=== PATIENT | male | born 1985 | race African-American/Black ===

== ENCOUNTER 2017-03-19 19:50 | Emergency (ER) | payer SELFPAY ==
[2017-03-19 20:29] LABS: APPEARANCE,URINE CLEAR; BILIRUBIN,URINE NEGATIVE (NEGATIVE); COLOR,URINE YELLOW; GLUCOSE, URINE >=500 mg/dL (NEGATIVE); KETONES,URINE NEGATIVE (NEGATIVE); LEUKOCYTE ESTERASE,URINE NEGATIVE (NEGATIVE); NITRITE,URINE NEGATIVE (NEGATIVE); PROTEIN,URINE NEGATIVE (NEGATIVE); URINE SPECIFIC GRAVITY 1.031
[2017-03-19 20:30] VITALS: BP 155/88
--- NOTE | 2017-03-19 23:22 | ER Document Report ---
ED GI/ - General Chief Complaint: Flank Pain Stated Complaint: URINIARY ISSUES Time Seen by Provider: 03/19/17 22:49 Mode of Arrival: Ambulatory Information source: Patient - HPI Patient complains to provider of: Other - Blood in semen Onset: This morning Notes: 03/19/17 23:17 Patient arrives with complaints of blood in his semen this morning. He states that never seen that happened before. States that he urinated several times throughout the day today and did not notice any blood in his urine. He denies any nausea, vomiting, diarrhea. He denies any pain with urination. Does complain of some intermittent sharp pains in his left lower abdomen, but denies any significant pain there at this time. He denies any rashes. No fever. No nausea, vomiting, diarrhea. No chest pain or shortness of breath. He is not on blood thinning medications. He denies any injuries. He denies any penile discharge, testicular pain or swelling. He denies multiple sexual partners. He denies any known history of diabetes. He has no other complaints at this time. - Related Data Allergies/Adverse Reactions: No Known Allergies Allergy (Unverified 03/19/17 19:51) Past Medical History - Social History Smoking Status: Unknown if Ever Smoked Family History: Reviewed & Not Pertinent Review of Systems - Review of Systems -: Yes All other systems reviewed and negative Physical Exam - Vital signs Vitals: Temp Pulse BP Pulse Ox 97.4 F 83 155/88 H 96 03/19/17 20:29 03/19/17 20:29 03/19/17 20:29 03/19/17 20:29 - Notes Notes: GENERAL: alert, cooperative, nontoxic, no distress. HEAD: normocephalic, atraumatic EYES: conjunctiva pink without discharge, no external redness or swelling. EARS: no external swelling, no external redness NOSE: atraumatic, no external swelling MOUTH/THROAT: mucous membranes moist and pink, posterior pharynx without erythema, swelling, exudate. No trismus or drooling. NECK: soft, supple, full range of motion, no meningismus. CHEST: no distress, lungs clear and equal throughout. No wheezing, rales, rhonchi. CARDIAC: regular rate and rhythm, no murmur, normal capillary refill, normal pulses. No peripheral edema noted. ABDOMEN: Soft, nontender. No mass. No rebound tenderness or guarding. BACK: full range of motion, no CVA tenderness. EXTREMITIES: full range of motion of all extremities. No redness, no swelling. NEURO: alert and oriented x 3, no focal deficits, full range of motion of all extremities. PYSCH: appropriate mood, affect. Patient is cooperative. SKIN: pink, warm, dry, no rash. : Normal circumcised penis with no penile discharge. Normal testicular exam with no masses or tenderness. No swelling. Cremasterics reflexes present bilaterally. No masses. Scrotal skin is normal with no erythema or crepitus. Course - Re-evaluation Re-evalutation: 03/19/17 23:19 Patient is nontoxic appearing with stable vitals. Patient states that he noticed some blood in the semen this morning and has had no further blood throughout the day. He denies any blood in his urine. Had some intermittent left-sided abdominal pain, but denies any pain currently. He is no tenderness on exam. His exam is unremarkable. His urinalysis shows no blood or signs of infection but does show 500 of glucose. Fingerstick shows a glucose of 187. The patient denies any known history of diabetes. It is likely that the patient has undiagnosed type 2 diabetes. He has no other complaints at this time. I offered drawing blood work and ordering a CT of his abdomen in the emergency department tonight. The patient declined at this time. He states that he feels fine and would prefer to follow-up as an outpatient with primary care. I will place the patient on antibiotics for possible infection as the source of his blood in his semen. He will be referred to primary care. The patient is noted to have elevated blood pressure during today's emergency department visit. The patient was informed of this finding. The patient was instructed that this may be related to pre-hypertension and requires further evaluation with a primary care provider. The patient has no hypertensive symptoms at this time. The patient's emergency department workup and current diagnosis were explained to the patient and or family. Follow-up instructions were provided. Medications if prescribed were discussed. Instructions for when to return to the emergency department including specific worrisome symptoms were discussed with the patient and/or family. - Vital Signs Vital signs: Temp Pulse Resp BP Pulse Ox 97.4 F 83 155/88 H 96 03/19/17 20:29 03/19/17 20:29 03/19/17 20:29 03/19/17 20:29 - Laboratory Laboratory results interpreted by me: 03/19/17 19:55 Urine Glucose (UA) >=500 H Urine Urobilinogen 2.0 H Discharge - Discharge Clinical Impression: Hyperglycemia, Hematospermia Condition: Stable Disposition: HOME, SELF-CARE Instructions: Hyperglycemia ([facility]) Additional Instructions: Take medications as prescribed. Drink plenty of fluids. Limit your carbohydrate intake. Get established with a primary care doctor at the next available appointment. Follow-up sooner for increasing pain, fever, persistent vomiting, blood in your urine, chest pain, shortness of breath, or any further concerns. Your blood pressure was elevated during today's visit. Have this rechecked with your doctor. Prescriptions: Ciprofloxacin HCl [Cipro 500 mg Tablet] 500 mg PO BID #20 tablet Forms: Elevated Blood Pressure, Smoking Cessation Education Referrals: [facility] [Provider Group] - Follow up as needed BIMAL MCGARRY OT [OPTHALMIC FINANCIAL SERVICES INTERN] - Follow up as needed CRISTINA DURAN DO [ACTIVE STAFF] - Follow up as needed PARTH PEDROZA MD [ACTIVE STAFF] - Follow up as needed ELTON LAY MD [ACTIVE STAFF] - Follow up as needed ELAINE HIRSCH DO [ACTIVE STAFF] - Follow up as needed DEENA ALCOCER MD [CONSULTING STAFF] - Follow up as needed JEOVANY CHUN MD [CONSULTING STAFF] - Follow up as needed
== END 2017-03-20 00:12 | disposition home or self-care (01) ==
LOC: ER 19:50
DX: R36.1 Hematospermia (principal); R73.9 Hyperglycemia, unspecified; R10.32 Left lower quadrant pain
CPT/HCPCS: 81001; 82962; 99284

== ENCOUNTER 2018-01-18 22:03 | Emergency (ER) | payer MEDICAID ==
[2018-01-19] MEDS ORDERED: METOCLOPRAMIDE HCL INJ/PF 10 MG/2 ML SDV IV ONE (01:15)
[2018-01-19] MEDS ORDERED: DIPHENHYDRAMINE HCL 50 MG/ML VIAL IV ONE (01:16)
[2018-01-19] MEDS ORDERED: LORAZEPAM INJ 2 MG/1 ML VIAL IV ONE (01:18)
--- NOTE | 2018-01-19 01:19 | ER Document Report ---
ED General - General Chief Complaint: Headache Stated Complaint: EYE INJURY Time Seen by Provider: 01/19/18 00:35 Mode of Arrival: Ambulatory Information source: Patient Notes: 32-year-old male with no reported past medical history and remote history of corneal transplant at age 77 years old presents with complaint of left-sided headache. Patient states that he damaged his corneal transplant 5 years ago and since that time has had complete vision loss. He states that 2 weeks ago he hit the corner of his eye on a cabinet. He was seen by his kettle fry cook operator at the eye care center and advised to follow-up with ophthalmology which he has yet to do. Patient states since that time he has experienced 2 headaches one last week that he describes as a throbbing pain at the back of his head on the left and one last night that he describes similarly with increased pressure behind the left eye. TRAVEL OUTSIDE OF THE [place] IN LAST 30 DAYS: No - HPI Onset: Other Onset/Duration: Gradual, Persistent Quality of pain: Achy, Throbbing Severity: Mild Associated symptoms: Headache. denies: Chest pain, Chills, Productive cough, Fever, Nausea, Vomiting, Shortness of breath, Weakness Exacerbated by: Other - Light Relieved by: Other - Ibuprofen Similar symptoms previously: Yes Recently seen / treated by doctor: Yes - Related Data Allergies/Adverse Reactions: No Known Allergies Allergy (Unverified 03/19/17 19:51) Past Medical History - General Information source: Patient, [facility] Records - Social History Smoking Status: Never Smoker Frequency of alcohol use: None Drug Abuse: Marijuana Lives with: Family Family History: Reviewed & Not Pertinent Patient has suicidal ideation: No Patient has homicidal ideation: No EENT Medical History: Reports: Eyes - Left eye corneal transplant, left eye blindness. Review of Systems - Review of Systems Notes: REVIEW OF SYSTEMS: CONSTITUTIONAL : Denies fever, chills, or sweats. Denies recent illness. Denies weight loss, recent hospitalizations. EENT: Denies visual changes. Denies sore throat, oral lesions, difficulty swallowing. CARDIOVASCULAR: Denies chest pain. Denies palpitations. Denies lower extremity edema. RESPIRATORY: Denies cough. Denies shortness of breath, wheezing. GASTROINTESTINAL: Denies abdominal pain or distention. Denies nausea, vomiting , or diarrhea. Denies blood in vomitus, stools, or per rectum. Denies black, tarry stools. Denies constipation. GENITOURINARY: Denies difficulty urinating, painful urination, frequency, blood in urine, testicular pain or penile discharge. MUSCULOSKELETAL: Denies back or neck pain or stiffness. Denies joint pain or swelling. SKIN: Denies rash, lesions or sores. HEMATOLOGIC : Denies easy bruising or bleeding. LYMPHATIC: Denies swollen glands. NEUROLOGICAL: Denies confusion or altered mental status. Denies loss of consciousness. Denies dizziness or lightheadedness. Denies weakness or paralysis. Denies problems difficulty with ambulation, slurred speech. Denies sensory loss, numbness, or tingling. Denies seizures. PSYCHIATRIC: Denies anxiety or stress. Denies depression, suicidal ideation, or Physical Exam - Vital signs Vitals: Temp Pulse Resp BP Pulse Ox 98.9 F 80 18 158/105 H 96 01/18/18 22:20 01/18/18 22:20 01/18/18 22:20 01/18/18 22:20 01/18/18 22:20 Interpretation: Hypertensive. No: Febrile - Notes Notes: PHYSICAL EXAMINATION: GENERAL: Well-appearing, well-nourished and in no acute distress. HEAD: Atraumatic, normocephalic. EYES: Right eye-PERRLA. Left eye with erythematous conjunctive , exophthalmos, cloudy cornea, complete visual loss. ENT: Nares patent, oropharynx clear without exudates. Moist mucous membranes. NECK: Normal range of motion, supple without lymphadenopathy LUNGS: Breath sounds clear to auscultation bilaterally and equal. No wheezes rales or rhonchi. HEART: Regular rate and rhythm without murmurs ABDOMEN: Soft, nontender, nondistended abdomen. No guarding, no rebound. No masses appreciated. Musculoskeletal: Normal range of motion, no pitting or edema. No cyanosis. NEUROLOGICAL: Cranial nerves grossly intact. Normal speech, normal gait. Normal sensory, motor exams PSYCH: Normal mood, normal affect. SKIN: Warm, Dry, normal turgor, no rashes or lesions noted. Course - Re-evaluation Re-evalutation: Head CT 01/19/18 01:12 IMPRESSION: Unilateral proptosis of the left globe and what appears to be lenticular displacement and rotation. There is also suggestion of medial displacement of the left optic nerve and slight prominence of the retrobulbar fat. Etiology is indeterminate based on this exam, however given the findings neoplastic etiologies are not excluded. Orbital pseudotumor, as well as inflammatory/ infectious processes could be considered. Recommend follow-up with dedicated MRI.. TECHNICAL DOCUMENTATION: Quality ID # 436: Final reports with documentation of one or more dose reduction techniques (e.g., Automated exposure control, adjustment of the mA and/or kV according to patient size, use of iterative reconstruction technique) 2010 [employer]- All Rights Reserved 01/19/18 02:10 [facility] contacted for ophthalmology consult. 01/19/18 02:[address] Rivera Thorne disease and insect control boss grey iron molder at [facility] who reviewed the CAT scan and its report. He states that the patient requires a unique specialty called orbital plastics which he states is at [facility]. 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 He does not feel that this is an emergent issue since the patient has had this problem chronically and has been blind in his left eye for approximately 5 years. Does not think patient needs emergent MRI. Decides what to do with this information when the patient is refusing to follow-up as recommended for the last 5 years. Patient has been told by multiple specialists that he needs to be seen by ophthalmology and he has yet to follow-up. I spoke to the patient at length and offered transfer to [facility] which he refuses. I also offered to attempt to set up follow-up with orbital plastics at [facility] as an outpatient and he also refuses that, states that going to [facility] expensive and too far. He does report resolution of his headache after receiving Reglan, Benadryl, Ativan, Decadron. I will give him a referral to our local disease and insect control boss but did set him up for the likelihood that they would recommend the same thing. Patient was evaluated and treated as appropriate for the patient's presenting symptoms and complaint, with consideration of any critical or life threatening conditions that may be associated with their obtained history and exam as noted above. All results were discussed with patient and a copy of his CAT scan report today. Patient provided the opportunity to ask questions, and express concerns. Patient was educated on treatments based on their presumed diagnosis as noted above. At this time we will discharge the patient with return precautions and follow-up recommendations. Verbal discharge instructions given a the bedside. Medication warnings reviewed. Patient is in agreement with this plan and has verbalized understanding of return precautions. After careful consideration I feel that that patient can be safely discharged from the emergency department, they were advised to followup with a primary care physician in 2-3 days. Dictation on this chart was performed using voice recognition software and may result in unintended grammatical, spelling, syntax or errors. 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 Please use Tylenol (acetaminophen) or Motrin (ibuprofen), Reglan or Benadryl as needed for symptoms, but only as written on the box. As we have discussed, please follow up with your primary care doctor as soon as possible regarding today's ED visit and your headache symptoms. Call your doctor or return to the ED if you have a worsening headache, sudden and severe headache, confusion, slurred speech, facial droop, weakness or numbness in any arm or leg, extreme fatigue, or other symptoms that concern you. Your CAT scan today is concerning for orbital sumo tumor or infection after speaking with ophthalmology they feel that you would best be served by seeing a orbital plastic surgeon. These specialists are usually only at large academic centers like [facility]. I did offer her to call [facility] and arrange follow- up for transfer but you are refusing at this time. Please take your CAT scan report with the due to the disease and insect control boss I have referred you to in [place]. Follow up with your [id number] hours for further care or return to the ED IMMEDIATELY if symptoms worsen or you have any concerns. If you cannot afford to follow up with your primary care physician a list of low cost clinics have been provided at the end of your discharge papers as well. Most prescribed medications have multiple side effects. The safest thing to do is when filling your prescription speak to your pharmacist regarding possible interactions with your normal home medications and over the counter medications such as Ibuprofen, Tylenol, Benadryl. If you experience any symptoms that cause you discomfort or concern you should discontinue the medication immediately and return to the emergency room or call your primary care physician. Prescriptions: Metoclopramide HCl [Reglan 10 mg Tablet] 1 tab PO Q8H PRN #10 tablet PRN Reason: For Headache Forms: Elevated Blood Pressure Referrals: ANTONINA BURGESS MD [COMMUNITY BASED STAFF] - Follow up as needed PARTH PEDROZA MD [ACTIVE STAFF] - Follow up tomorrow
--- NOTE | 2018-01-19 01:48 | RADIOLOGY REPORT (SQ) ---
EXAM DESCRIPTION: CT HEAD WITHOUT IV CONTRAST COMPLETED DATE/TME: 01/19/2018 01:12 CLINICAL HISTORY: 32 years, Male, FORD, exophthalmos, please include below orbits. COMPARISON: None. TECHNIQUE: 172 Images stored on PACS. All CT scanners at this facility use dose modulation, iterative reconstruction, and/or weight based dosing when appropriate to reduce radiation dose to as low as reasonably achievable (ALARA). [facility]: Dose Right [facility]: CareDose [facility]: Dose Right [facility]: Teradose 4D [facility]: [employer] LIMITATIONS: None. FINDINGS: There is unilateral proptosis of the left lobe and what appears to be lenticular displacement and rotation. Etiology is indeterminate based on this exam. However, there is also medial displacement of the left optic nerve. Slight prominence of the retrobulbar fat on the left. Osseous structures appear unremarkable. Polyps of the maxillary sinuses are present bilaterally. No intra or extra-axial hemorrhage. CT is limited for evaluation of acute infarct. No CT evidence for large or territorial acute infarct. No CT evidence for intra-axial mass or midline shift. IMPRESSION: Unilateral proptosis of the left globe and what appears to be lenticular displacement and rotation. There is also suggestion of medial displacement of the left optic nerve and slight prominence of the retrobulbar fat. Etiology is indeterminate based on this exam, however given the findings neoplastic etiologies are not excluded. Orbital pseudotumor, as well as inflammatory/ infectious processes could be considered. Recommend follow-up with dedicated MRI.. TECHNICAL DOCUMENTATION: Quality ID # 436: Final reports with documentation of one or more dose reduction techniques (e.g., Automated exposure control, adjustment of the mA and/or kV according to patient size, use of iterative reconstruction technique) 2010 [employer]- All Rights Reserved
[2018-01-19] MEDS ORDERED: DEXAMETHASONE 4 MG TABLET PO ONE (02:56)
[2018-01-19 04:05] VITALS: BP 157/96
== END 2018-01-19 04:05 | disposition home or self-care (01) ==
LOC: ER 22:03
DX: H05.112 Granuloma of left orbit (principal); R51 Headache; R03.0 Elevated blood-pressure reading, without diagnosis of hypertension; H05.20 Unspecified exophthalmos; F12.10 Cannabis abuse, uncomplicated; Z94.7 Corneal transplant status
CPT/HCPCS: 99284; 96374; 96375; 70450; J3490; J1200; J2765; J2060

== ENCOUNTER 2018-06-24 15:48 | Emergency (ER) | payer MEDICAID ==
[2018-06-24] MEDS ORDERED: ONDANSETRON 4 MG TAB.RAPDIS PO ONE (18:09)
--- NOTE | 2018-06-24 18:14 | ER Document Report ---
ED Medical Screen (RME) - General Chief Complaint: Abdominal Pain Stated Complaint: STOMACH PAIN Time Seen by Provider: 06/24/18 17:59 Primary Care Provider: LEENA YOUNG MD [Primary Care Provider] - Follow up as needed TRAVEL OUTSIDE OF THE [place] IN LAST 30 DAYS: No - HPI Notes: 06/24/18 18:12 Patient is a 33-year-old male with a history of hypertension who presents emergency department complaining of semi-productive cough over the past 8 days with abdominal cramping and watery diarrhea over the past 3 days. Patient states he developed chest pain after he was coughing today the left sternal area. Patient states that the pain is still there and is sharp. Pain does not radiate. No cardiopulmonary medical history otherwise. Denies any prolonged immobilization, distance travel, recent surgery/trauma, personal cancer history, hormone use, smoking, or previous DVT/PE. Denies FORD, fever, neck pain, SOB, or rash. I have treated and performed a rapid initial assessment of this patient. A comprehensive ED assessment and evaluation of the patient, analysis of test results and completion of medical decision making process will be conducted by additional ED providers. PHYSICAL EXAMINATION: GENERAL: Well-appearing, well-nourished and in no acute distress. A&Ox4. Answers questions appropriately. LUNGS: Breath sounds clear to auscultation bilaterally and equal. No wheezes rales or rhonchi. HEART: Regular rate and rhythm without murmurs, rubs, gallops. ABDOMEN: Soft, nondistended abdomen. No guarding, no rebound. Normal bowel sounds present. No CVA tenderness bilaterally. + mild mid abd tenderness (cannot elicit thorough abd exam w/o table, however). Extremities: No cyanosis, clubbing, or edema b/l. No lower extremity asymmetry. Cheryl negative bilaterally. NEUROLOGICAL: Normal speech, normal gait. PSYCH: Normal mood, normal affect. - Related Data Allergies/Adverse Reactions: No Known Allergies Allergy (Verified 06/24/18 15:55) Past Medical History - Social History Chew tobacco use (# tins/day): No Frequency of alcohol use: Occasional Drug Abuse: Marijuana - Past Medical History Cardiac Medical History: Reports: Hx Hypertension Renal/ Medical History: Denies: Hx Peritoneal Dialysis Physical Exam - Vital signs Vitals: Temp Pulse Resp BP Pulse Ox 99.8 F 110 H 20 154/85 H 96 05/02/19 16:06 06/24/18 16:06 06/24/18 16:06 06/24/18 16:06 06/24/18 16:06 Course - Vital Signs Vital signs: Temp Pulse Resp BP Pulse Ox 99.8 F 110 H 20 154/85 H 96 06/24/18 16:06 06/24/18 16:06 06/24/18 16:06 06/24/18 16:06 06/24/18 16:06 Doctor's Discharge - Discharge Referrals: LEENA YOUNG MD [Primary Care Provider] - Follow up as needed
--- NOTE | 2018-06-24 18:44 | RADIOLOGY REPORT (SQ) ---
EXAM DESCRIPTION: CHEST 2 VIEWS COMPLETED DATE/TIME: 06/24/2018 6:31 pm REASON FOR STUDY: cough COMPARISON: None. EXAM PARAMETERS: NUMBER OF VIEWS: two views TECHNIQUE: Digital Frontal and Lateral radiographic views of the chest acquired. RADIATION DOSE: NA LIMITATIONS: none FINDINGS: LUNGS AND PLEURA: Left lower lobe consolidation. No pleural effusion or pneumothorax. MEDIASTINUM AND HILAR STRUCTURES: No masses or contour abnormalities. HEART AND VASCULAR STRUCTURES: Heart normal size. No evidence for failure. BONES: No acute findings. HARDWARE: None in the chest. OTHER: No other significant finding. IMPRESSION: Findings consistent with left lower lobe pneumonia. TECHNICAL DOCUMENTATION: JOB ID: [id number] [employer]- All Rights Reserved Reading location - IP/workstation name: [email or web address]
[2018-06-24 18:55] LABS: APPEARANCE,URINE CLOUDY; BILIRUBIN,URINE NEGATIVE (NEGATIVE); COLOR,URINE AMBER; GLUCOSE, URINE 50 mg/dL (NEGATIVE); KETONES,URINE TRACE mg/dL (NEGATIVE); LEUKOCYTE ESTERASE,URINE NEGATIVE (NEGATIVE); NITRITE,URINE NEGATIVE (NEGATIVE); PROTEIN,URINE 100 mg/dL (NEGATIVE); URINE SPECIFIC GRAVITY 1.029; UROBILINOGEN,URINE NEGATIVE mg/dL (<2.0)
[2018-06-24 19:07] LABS: ABSOLUTE LYMPHOCYTES (AUTO) 1.8 10^3/uL (0.5-4.7); ABSOLUTE MONOCYTES (AUTO) 0.9 10^3/uL (0.1-1.4); ABSOLUTE NEUT (AUTO) 6.3 10^3/uL (1.7-8.2); BASOPHILS % (AUTO) 0.2 % (0-2); EOSINOPHILS % (AUTO) 0.1 % (0-6); HEMATOCRIT 46.6 % (37.9-51.0); HEMOGLOBIN 15.7 g/dL (13.5-17.0); LYMPHOCYTES % (AUTO) 19.9 % (13-45); MEAN CORPUSCULAR HGB CONC 33.7 g/dL (32.0-36.0); MEAN CORPUSCULAR VOLUME 83 fl (80-97); MONOCYTES % (AUTO) 10.1 % (3-13); PLATELET COUNT 268 10^3/uL (150-450); RED CELL DISTRIBUTION WIDTH 13.5 % (11.5-14.0); SEGMENTED NEUTROPHILS % (AUTO) 69.7 % (42-78); TOTAL CELLS COUNTED % (AUTO) 100 %
--- NOTE | 2018-06-24 19:44 | ER Document Report ---
ED General - General TRAVEL OUTSIDE OF THE [place] IN LAST 30 DAYS: No <GILBERTO MORGAN - Last Filed: 06/24/18 20:07> <DEEDEE STRONG - Last Filed: 06/24/18 23:19> - General Chief Complaint: Abdominal Pain Stated Complaint: STOMACH PAIN Time Seen by Provider: 06/24/18 17:59 Primary Care Provider: LEENA YOUNG MD [Primary Care Provider] - Follow up as needed - [facility] Notes: Patient is a 33-year-old male with a history of hypertension who presents emergency department complaining of semi-productive cough over the past 8 days with abdominal cramping and watery diarrhea over the past 3 days. Patient states he developed chest pain after he was coughing today the left sternal area. Patient states that the pain is still there and is sharp. Pain does not radiate. Pt states that on occ he will feel sob with exertion, but nothing at rest. No cardiopulmonary medical history otherwise. Denies any prolonged immobilization, distance travel, recent surgery/trauma, personal cancer history, hormone use, smoking, or previous DVT/PE. Denies any headache, fever, neck pain, URI, sore throat, palpitations, syncope, wheeze, vomiting, urinary retention, dysuria, hematuria, back pain, or rash. (GILBERTO MORGAN) - Related Data Allergies/Adverse Reactions: No Known Allergies Allergy (Verified 06/24/18 15:55) Past Medical History - Social History Smoking Status: Former Smoker Chew tobacco use (# tins/day): No Frequency of alcohol use: Occasional Drug Abuse: Marijuana Family History: Reviewed & Not Pertinent Patient has suicidal ideation: No Patient has homicidal ideation: No - Past Medical History Cardiac Medical History: Reports: Hx Hypertension Renal/ Medical History: Denies: Hx Peritoneal Dialysis <GILBERTO MORGAN - Last Filed: 06/24/18 20:07> Review of Systems - Review of Systems -: Yes All other systems reviewed and negative <GILBERTO MORGAN - Last Filed: 06/24/18 20:07> Physical Exam <GILBERTO MORGAN - Last Filed: 06/24/18 20:07> - Vital signs Vitals: Temp Pulse Resp BP Pulse Ox 99.8 F 110 H 20 154/85 H 96 06/24/18 16:06 06/24/18 16:06 06/24/18 16:06 06/24/18 16:06 06/24/18 16:06 - Notes Notes: PHYSICAL EXAMINATION: GENERAL: Well-appearing, well-nourished and in no acute distress. HEAD: Atraumatic, normocephalic. EYES: Pupils equal round and reactive to light, extraocular movements intact, sclera anicteric, conjunctiva are normal. ENT: Nares patent and without discharge. oropharynx clear without exudates. No tonsilar hypertrophy or erythema. Moist mucous membranes. NECK: Normal range of motion, supple without lymphadenopathy Chest: + mildly reproducible tenderness to palpation of the lt pectoral area and reproducible with arm extension/abduction. LUNGS: Breath sounds clear to auscultation bilaterally and equal. No wheezes rales or rhonchi. HEART: Regular rate and rhythm without murmurs, rubs, gallops. ABDOMEN (pt in bed now): Soft, nontender (on re-eval, mild mid abd tenderness du ring triage exam), nondistended abdomen. No guarding, no rebound. No masses appreciated. Normal bowel sounds present. No CVA tenderness bilaterally. Saucedo neg. No tenderness at McBurney point. Musculoskeletal: FROM to passive/active. Strength 5+/5. Cheryl neg. No asymmetry to LE's. Extremities: No cyanosis, clubbing, or edema b/l. Peripheral pulses 2+. Capillary refill less than 3 seconds. NEUROLOGICAL: Normal speech, normal gait. PSYCH: Normal mood, normal affect. SKIN: Warm, Dry, normal turgor, no rashes or lesions noted. (GILBERTO MORGAN) Course - Laboratory Result Diagrams: 06/24/18 18:45 06/24/18 18:45 <GILBERTO MORGAN - Last Filed: 06/24/18 20:07> - Laboratory Result Diagrams: 06/24/18 18:45 06/24/18 20:54 <DEEDEE STRONG - Last Filed: 06/24/18 23:19> - Re-evaluation Re-evalutation: 06/24/18 19:[address] Lauren Theodore who is in agreement with plan. ?Pneumonia vs PE at this time. EKG does show HR of 108 and inversions in lead 3/AvF, ?s1q3t3 presentation. We will continue with labs including a d-dimer and fluids. Transfer of care to [facility] (GILBERTO MORGAN) 06/24/18 23:16 Patient's d-dimer was elevated at 1.07, CTA ordered. CTA shows no signs of pulmonary embolus does show continued signs of left lower lobe pneumonia. Patient's CMP did results. Patient's sodium corrected was 134. Patient's glucose was 285, treated with 2 L of normal saline solution in the emergency department is came down to 253. Patient's urine also shows signs of glucose. Discussed this case with My attending Dr. Dionna Theodore who suggest starting the patient on 500 mg metformin daily. Discussed close follow-up for continued monitoring of his sugar and continued care. Patient voices understanding and is stable for discharge. 06/24/18 23:19 Patient states he does have a primary care provider and will follow up with them in the next 24 hours. Patient voices understanding that diabetes is a serious condition and he needs to follow-up. Patient's is also in the room with him voicing understanding. (DEEDEE STRONG) - Vital Signs Vital signs: Temp Pulse Resp BP Pulse Ox 99.8 F 110 H 16 138/75 H 96 06/24/18 16:06 06/24/18 16:06 06/24/18 21:03 06/24/18 21:03 06/24/18 21:03 - Laboratory Laboratory results interpreted by me: 06/24/18 06/24/18 06/24/18 18:18 18:45 20:54 RBC 5.60 H D-Dimer 1.07 H Sodium Chloride Carbon Dioxide Glucose Total Protein Urine Protein 100 H Urine Glucose (UA) 50 H Urine Ketones TRACE H Urine Ascorbic Acid 20 H 06/24/18 20:54 RBC D-Dimer Sodium 130.7 L Chloride 93 L Carbon Dioxide 21 L Glucose 285 H Total Protein 8.5 H Urine Protein Urine Glucose (UA) Urine Ketones Urine Ascorbic Acid Discharge <GILBERTO MORGAN - Last Filed: 06/24/18 20:07> <DEEDEE STRONG - Last Filed: 06/24/18 23:19> - Discharge Clinical Impression: LLL pneumonia Qualifiers: Pneumonia type: due to unspecified organism Qualified Code(s): J18.1 - Lobar pneumonia, unspecified organism Condition: Stable Disposition: HOME, SELF-CARE Instructions: Pneumonia ([facility]) Additional Instructions: Maintain adequate fluid intake Take meds as directed tylenol/ibuprofen as needed over the counter cold medication as needed for symptoms Humidified air may help Wash your hands regularly Wear a mask when coughing F/u: with your PCM in 2-3 days for a recheck Also as we discussed your blood sugar glucose has been elevated at your visit today. It is my suggestion that you start taking metformin for your blood sugar glucose control. Please make sure you take 1 pill daily until you follow-up with your primary care provider. They may do continue to repeat testing to change or increase her medications. Please make sure you return to the emergency room should you have increased urination, increased thirst, vomiting or diarrhea. Return to the ED with any fever, worsening pain, chest pain, palpitations, syncope, worsening FORD, neck pain/stiffness, shortness of breath, wheezing, drooling, trouble swallowing/breathing, abdominal pain, n/v/d, rash, or worsening/concerning symptoms otherwise. Prescriptions: Levofloxacin [Levaquin 500 mg Tablet] 500 mg PO DAILY #7 tablet Metformin HCl [Glucophage 500 mg Tablet] 500 mg PO DAILY #14 tablet Forms: Elevated Blood Pressure Referrals: LEENA YOUNG MD [Primary Care Provider] - Follow up as needed
[2018-06-24] MEDS: NORMAL SALINE 1000 ML 1,000 ML IV PRN ×2 (20:56→20:58)
[2018-06-24 21:20] LABS: INTERNATIONAL RATION (INR) 1.01; PROTHROMBIN TIME 13.8 SEC (11.4-15.4)
[2018-06-24 21:23] LABS: D-DIMER 1.07 ug/mL (0.00-0.50)
[2018-06-24 21:33] LABS: ALANINE AMINOTRANSFERASE 26 U/L (21-72); ALBUMIN 4.6 g/dL (3.5-5.0); ALKALINE PHOSPHATASE 71 U/L (38-126); ANION GAP 17 (5-19); ASPARTATE AMINO TRANSFERASE 36 U/L (17-59); BILIRUBIN,DIRECT 0.4 mg/dL (0.0-0.4); BLOOD UREA NITROGEN 19 mg/dL (7-20); CALCIUM 9.8 mg/dL (8.4-10.2); CARBON DIOXIDE 21 mmol/L (22-30); CHLORIDE 93 mmol/L (98-107); GLUCOSE 285 mg/dL (75-110); POTASSIUM 4.1 mmol/L (3.6-5.0); SODIUM 130.7 mmol/L (137-145); TOTAL PROTEIN 8.5 g/dL (6.3-8.2)
--- NOTE | 2018-06-24 22:53 | RADIOLOGY REPORT (SQ) ---
EXAM DESCRIPTION: RadLex: CT CHEST ANGIOGRAPHY WITHOUT THEN WITH IV CONTRAST CLINICAL HISTORY: 33 years Male; d-dimer high, tachy, SOB TECHNIQUE: CT angiogram of the chest using intravenous 87 mL Omnipaque 350. MIP reconstructions were performed. All CT scans at this facility use dose modulation, iterative reconstruction, and/or weight based dosing when appropriate to reduce radiation dose to as low as reasonably achievable. COMPARISON: None. FINDINGS: Chest: No filling defects in the central pulmonary arteries. There is an area of dense consolidation with groundglass infiltrate in the left lower lobe, with air bronchograms. Small focus of peripheral atelectasis versus infiltrate is also noted in the lingula. No pleural effusion or pneumothorax. Slight right lung remains clear. Multiple subthreshold mediastinal and left hilar lymph nodes are noted, likely reactive. No pericardial effusion. Visualized portions of the upper abdomen are unremarkable. IMPRESSION: 1. Acute left lower lobe pneumonia. 2. No CT evidence for pulmonary embolism. 3. Reactive mediastinal and left hilar adenopathy.
[2018-06-24 22:55] LABS: VENOUS BLOOD BASE EXCESS -3.2 mmol/L; VENOUS BLOOD HCO3 21.3 mmol/L (20-32); VENOUS BLOOD PCO2 36.7 mmHg (35-63); VENOUS BLOOD PH 7.38 (7.30-7.42)
[2018-06-24] MEDS ORDERED: METFORMIN HCL 500 MG TABLET PO ONE (23:15)
[2018-06-24 23:20] VITALS: BP 142/83
--- NOTE | 2018-06-24 23:20 | EKG REPORT ---
SEVERITY:- ABNORMAL ECG - SINUS TACHYCARDIA PROBABLE LEFT ATRIAL ABNORMALITY ABNORMAL T, CONSIDER ISCHEMIA, INFERIOR LEADS : Confirmed by: Bhaskar Rivera 24-Jun-2018 23:20:30
== END 2018-06-24 23:40 | disposition home or self-care (01) ==
LOC: ER 15:48
DX: J18.1 Lobar pneumonia, unspecified organism (principal); R05 Cough; I10 Essential (primary) hypertension; R10.9 Unspecified abdominal pain; R19.7 Diarrhea, unspecified; R07.9 Chest pain, unspecified; R79.1 Abnormal coagulation profile; R06.02 Shortness of breath; F12.10 Cannabis abuse, uncomplicated; Z87.891 Personal history of nicotine dependence
CPT/HCPCS: 93005; 99284; 96360; 96361; 36415; 82962; 85025; 85610; 85730; 80053; 81001; 85379; 82803; 71046; 71275; 93010; S0119; J3490; J7030

== ENCOUNTER 2018-10-23 10:02 | Emergency (ER) | payer MEDICAID ==
[2018-10-23 10:08] VITALS: BP 143/84
[2018-10-23] MEDS ORDERED: IBUPROFEN 600 MG TABLET PO ONE (10:21)
[2018-10-23] MEDS ORDERED: CIPROFLOXACIN HCL/DEXAMETH OTIC DROP 7.5 ML AD ONE (10:21)
--- NOTE | 2018-10-23 10:24 | ER Document Report ---
HPI - HPI Time Seen by Provider: 10/23/18 10:10 Pain Level: 2 Notes: Otherwise healthy 33-year-old male presenting to the emergency department with complaints of pain to the right side of his neck and around his right ear. Patient reports he has been in a swimming pool lately. He is also concerned that his blood pressure may be elevated as he just started taking lisinopril and he ate a piece of ham yesterday that was very salty. Past Medical History - General Information source: Patient - Social History Smoking Status: Never Smoker Frequency of alcohol use: None Drug Abuse: None Family History: Reviewed & Not Pertinent - Past Medical History Cardiac Medical History: Reports: Hx Hypertension Endocrine Medical History: Reports: Hx Diabetes Mellitus Type 2 Renal/ Medical History: Denies: Hx Peritoneal Dialysis Surgical Hx: Negative - Immunizations Immunizations up to date: Yes Vertical Provider Document - CONSTITUTIONAL Notes: PHYSICAL EXAMINATION: GENERAL: Well-appearing, well-nourished and in no acute distress. HEAD: Atraumatic, normocephalic. EYES: Pupils equal round extraocular movements intact, conjunctiva are normal. ENT: Nares patent, bilateral TMs unremarkable, right TM erythematous and macerated. No mastoid tenderness. NECK: Normal range of motion, no cervical lymphadenopathy. LUNGS: No respiratory distress Musculoskeletal: Normal range of motion NEUROLOGICAL: Normal speech, normal gait. PSYCH: Normal mood, normal affect. SKIN: Warm, Dry, normal turgor, no rashes or lesions noted. - INFECTION CONTROL TRAVEL OUTSIDE OF THE [place] IN LAST 30 DAYS: No Course - Re-evaluation Re-evalutation: Examination is consistent with otitis externa. Blood pressure is not significantly elevated today. Patient will be started on Ciprodex drops. The patient's emergency department workup and current diagnosis were explained to the patient and or family. Follow-up instructions were provided. Medications if prescribed were discussed. Instructions for when to return to the emergency department including specific worrisome symptoms were discussed with the patient and/or family. - Vital Signs Vital signs: Temp Pulse Resp BP Pulse Ox 98.4 F 89 16 143/84 H 97 10/23/18 10:06 10/23/18 10:06 10/23/18 10:06 10/23/18 10:06 10/23/18 10:06 Discharge - Discharge Clinical Impression: Otitis externa Qualifiers: Otitis externa type: unspecified type Chronicity: unspecified Laterality: right Qualified Code(s): H60.91 - Unspecified otitis externa, right ear Condition: Stable Disposition: HOME, SELF-CARE Instructions: Use of Ear Drops ([facility]), Otitis Externa ([facility]) Additional Instructions: Otitis Externa You have otitis externa -- an infection of the outer ear canal. This can be very painful. It's sometimes called "swimmer's ear," because it often occurs after prolonged water exposure. Many things, such as earwax and dirt in the ear, can contribute to it. The usual treatment is antibiotic/antiinflammatory ear drops. Occasionally, a wick will be placed in the ear to draw in the medicine. If the infection is severe, an oral antibiotic may be prescribed. Pain medication is often needed. Avoid getting water in the ear. Outer ear infections often take longer to heal than you might expect. Some tenderness and ache in the ear may persist for about two weeks. See your physician if you fail to improve as expected. Call the doctor at once if you develop fever, increasing swelling (particularly if it makes your ear "poke out"), severe headache, stiff neck, or decreased hearing. Please use the Ciprodex eardrops as prescribed. Apply 4 drops into the affected ear twice daily for 7 days. Take ibuprofen or Motrin 600 mg every 6 hours to help with any discomfort. Use an ear plug if going in any pools or bodies of water. Continue taking your lisinopril and metformin as prescribed. Referrals: LEENA YOUNG MD [Primary Care Provider] - Follow up as needed
== END 2018-10-23 10:30 | disposition home or self-care (01) ==
LOC: ER 10:02
DX: H60.91 Unspecified otitis externa, right ear (principal); M54.2 Cervicalgia; H92.01 Otalgia, right ear; I10 Essential (primary) hypertension; Z79.899 Other long term (current) drug therapy; E11.9 Type 2 diabetes mellitus without complications
CPT/HCPCS: 99283; J3490 ×2

== ENCOUNTER 2018-11-13 09:12 | Emergency (ER) | payer MEDICAID ==
[2018-11-13] MEDS ORDERED: ASPIRIN 81 MG TABLET, CHEWABLE PO ONE ×2 (09:30→09:41)
--- NOTE | 2018-11-13 09:33 | ER Document Report ---
ED General - General Chief Complaint: Chest Pain Stated Complaint: HEADACHE Time Seen by Provider: 11/13/18 09:31 Primary Care Provider: LEENA YOUNG MD [Primary Care Provider] - Follow up as needed Mode of Arrival: Ambulatory Information source: Patient TRAVEL OUTSIDE OF THE [place] IN LAST 30 DAYS: No - HPI Notes: 33-year-old male with a medical history of hypercholesterolemia, type 2 diabetes, hypertension presents to the ED for evaluation of right and left-sided chest pain that has been occurring over the last 2 weeks became progressively worse 4 to 5 days ago, reports worse with movement, better at rest. Patient rep orts he spoke with his primary care provider, Schuyler hernadez, who advised him to come to the emergency room for "elevated cholesterol". Patient quit smoking approximately 10 years ago. Patient reports that bilateral chest pain radiates to his back. denies fevers, chills, palpitations, shortness of breath, dyspnea, nausea, vomiting, diarrhea, abdominal pain, hematuria,blurred vision, double v ision, loss of vision, speech changes, LH, dizziness, syncope, headaches, wheezing, ST, URI, neck pain, weakness, bowel or bladder dysfunction, saddle anesthesia, numbness or tingling in bilateral upper or lower extremities equally, muscle paralysis, weakness in bilateral upper or lower extremities equally or rash. - Related Data Allergies/Adverse Reactions: No Known Allergies Allergy (Verified 11/13/18 09:21) Past Medical History - General Information source: Patient - Social History Smoking Status: Former Smoker Family History: Reviewed & Not Pertinent Patient has suicidal ideation: No Patient has homicidal ideation: No - Past Medical History Cardiac Medical History: Reports: Hx Hypertension Endocrine Medical History: Reports: Hx Diabetes Mellitus Type 2 Renal/ Medical History: Denies: Hx Peritoneal Dialysis - Immunizations Immunizations up to date: Yes Review of Systems - Review of Systems Constitutional: No symptoms reported EENT: No symptoms reported Cardiovascular: See HPI Respiratory: No symptoms reported Gastrointestinal: No symptoms reported Genitourinary: No symptoms reported Male Genitourinary: No symptoms reported Musculoskeletal: No symptoms reported Skin: No symptoms reported Hematologic/Lymphatic: No symptoms reported Neurological/Psychological: No symptoms reported Physical Exam - Vital signs Vitals: Temp Pulse Resp BP Pulse Ox 98.9 F 86 16 146/94 H 100 11/13/18 09:19 11/13/18 09:19 11/13/18 09:19 11/13/18 09:19 11/13/18 09:19 - Notes Notes: PHYSICAL EXAMINATION: GENERAL: Well-appearing, well-nourished and in no acute distress. HEAD: Atraumatic, normocephalic. EYES: Pupils equal round and reactive to light, extraocular movements intact, sclera anicteric, conjunctiva are normal. ENT: Nares patent, oropharynx clear without exudates. Moist mucous membranes. NECK: Normal range of motion, supple without lymphadenopathy LUNGS: Breath sounds clear to auscultation bilaterally and equal. No wheezes rales or rhonchi. HEART: Regular rate and rhythm without murmurs. Unable to reproduce chest pain on palpation. ABDOMEN: Soft, nontender, nondistended abdomen. No guarding, no rebound. No masses appreciated. Musculoskeletal: Normal range of motion, no pitting or edema. No cyanosis. NEUROLOGICAL: Cranial nerves grossly intact. Normal speech, normal gait. Normal sensory, motor exams PSYCH: Normal mood, normal affect. SKIN: Warm, Dry, normal turgor, no rashes or lesions noted. Course - Re-evaluation Re-evalutation: 11/13/18 09:46 33-year-old male afebrile vital stable no distress. CBC is negative for leukocytosis or anemia, CMP negative for hepatic or renal dysfunction, 2 sets of troponin negative, patient had this chest pain for 2 weeks especially over the last 4 days, troponin being negative is absolute. Chest x-ray unremarkable, EKG negative for any ST segment changes or STEMI, TSH normal, urinalysis unremarkable. Patient did request muscle relaxer for having chronic neck pain, states he has not tried any heating, ibuprofen or Tylenol. Patient's heart score is one-point, is a risk of major coronary event is 0.9 to 1.7%. After performing a Medical Screening Examination, I estimate there is LOW risk for RUPTURED ESOPHAGUS, PNEUMOTHORAX, PULMONARY EMBOLISM, ACUTE CORONARY SYNDROME, OR THORACIC AORTIC DISSECTION, thus I consider the discharge disposition reasonable. I have reevaluated this patient multiple times and no significant life threatening changes are noted. The patient and I have discussed the diagnosis and risks, and we agree with discharging home with close follow-up. We also discussed returning to the Emergency Department immediately if new or worsening symptoms occur. We have discussed the symptoms which are most concern ing (e.g., bloody sputum, worsening pain or shortness of breath) that necessitate immediate return. - Vital Signs Vital signs: Temp Pulse Resp BP Pulse Ox 98.9 F 86 16 146/94 H 99 11/13/18 09:19 11/13/18 09:19 11/13/18 09:19 11/13/18 09:19 11/13/18 09:39 - Laboratory Result Diagrams: 11/13/18 09:36 11/13/18 09:36 Laboratory results interpreted by me: 11/13/18 11/13/18 11/13/18 09:36 09:36 10:35 RBC 5.70 H RDW 14.2 H Glucose 113 H Calcium 10.4 H Total Protein 8.3 H Urine Urobilinogen 2.0 H - EKG Interpretation by Me EKG shows normal: Sinus rhythm Rate: Normal Rhythm: NSR When compared to previous EKG there are: No significant change - No ST segment changes Discharge - Discharge Clinical Impression: Chest pain Condition: Stable Disposition: HOME, SELF-CARE Instructions: Chest Pain of Unclear Cause ([facility]), Aspirin (Cardiac) ([facility]) Additional Instructions: Chest Pain of Unclear Cause The exact cause of your chest pain isn't clear. Fortunately, there is no evidence of a dangerous medical condition. Further testing may be required to find the source of the pain. Most often, we find that this pain is coming from the chest wall -- the muscles or rib joints in the chest. But chest pain can come from the lung and lung lining, the esophagus, the heart valves or heart lining, and even the stomach or gallbladder. Rest. Eat lightly until the pain is gone. We may prescribe medicine for pain and inflammation. You should call the physician immediately if the pain radiates to the shoulder, jaw or arms; if you start to run a fever or develop a cough; or if you develop shortness of breath, or other new or alarming symptoms. Do not drive, drink or operate [id number] taking muscle relaxers and cause sedation and impairment of cognitive function. Return immediately for any new or worsening symptoms. Follow up with primary care provider, call tomorrow to make followup appointment. Prescriptions: Methocarbamol [Robaxin 500 mg Tablet] 500 mg PO QID PRN #15 tablet PRN Reason: Forms: Return to Work Referrals: MARK HA MD [EMERITUS] - Follow up in 3-5 days ANTONINA FELIPE DO [NO LOCAL MD] - Follow up in 3-5 days LEENA YOUNG MD [Primary Care Provider] - Follow up in 3-5 days
[2018-11-13 09:51] LABS: ABSOLUTE EOSINOPHILS # (AUTO) 0.3 10^3/uL (0.0-0.6); ABSOLUTE LYMPHOCYTES (AUTO) 2.7 10^3/uL (0.5-4.7); ABSOLUTE MONOCYTES (AUTO) 0.5 10^3/uL (0.1-1.4); ABSOLUTE NEUT (AUTO) 4.7 10^3/uL (1.7-8.2); BASOPHILS % (AUTO) 0.5 % (0-2); EOSINOPHILS % (AUTO) 3.6 % (0-6); HEMATOCRIT 47.8 % (37.9-51.0); HEMOGLOBIN 15.9 g/dL (13.5-17.0); LYMPHOCYTES % (AUTO) 32.9 % (13-45); MEAN CORPUSCULAR HEMOGLOBIN 27.8 pg (27.0-33.4); MEAN CORPUSCULAR HGB CONC 33.2 g/dL (32.0-36.0); MEAN CORPUSCULAR VOLUME 84 fl (80-97); MONOCYTES % (AUTO) 6.4 % (3-13); PLATELET COUNT 328 10^3/uL (150-450); RED CELL DISTRIBUTION WIDTH 14.2 % (11.5-14.0); SEGMENTED NEUTROPHILS % (AUTO) 56.6 % (42-78); TOTAL CELLS COUNTED % (AUTO) 100 %; WHITE BLOOD COUNT 8.3 10^3/uL (4.0-10.5)
[2018-11-13 10:12] LABS: ALKALINE PHOSPHATASE 67 U/L (38-126); ANION GAP 13 (5-19); ASPARTATE AMINO TRANSFERASE 20 U/L (17-59); BILIRUBIN,DIRECT 0.1 mg/dL (0.0-0.4); BILIRUBIN,TOTAL 1.1 mg/dL (0.2-1.3); BLOOD UREA NITROGEN 10 mg/dL (7-20); CALCIUM 10.4 mg/dL (8.4-10.2); CARBON DIOXIDE 26 mmol/L (22-30); CHLORIDE 101 mmol/L (98-107); CREATINE KINASE 128 U/L (55-170); GLUCOSE 113 mg/dL (75-110); PHOSPHORUS 4.2 mg/dL (2.5-4.5); POTASSIUM 4.5 mmol/L (3.6-5.0); TOTAL PROTEIN 8.3 g/dL (6.3-8.2)
--- NOTE | 2018-11-13 10:15 | RADIOLOGY REPORT (SQ) ---
EXAM DESCRIPTION: CHEST SINGLE VIEW COMPLETED DATE/TIME: 11/13/2018 10:03 am REASON FOR STUDY: bed 6 cp COMPARISON: None. EXAM PARAMETERS: NUMBER OF VIEWS: One view. TECHNIQUE: Single frontal radiographic view of the chest acquired. RADIATION DOSE: NA LIMITATIONS: None. FINDINGS: LUNGS AND PLEURA: No acute infiltrates or effusions. MEDIASTINUM AND HILAR STRUCTURES: No masses. Contour normal. HEART AND VASCULAR STRUCTURES: The heart is normal in size. The pulmonary vasculature is normal. BONES: No acute findings. HARDWARE: None in the chest. OTHER: No other significant finding. IMPRESSION: No acute disease. TECHNICAL DOCUMENTATION: JOB ID: [id number] [employer]- All Rights Reserved Reading location - IP/workstation name: [email or web address]
[2018-11-13 10:23] LABS: CREATINE KINASE MB 0.46 ng/mL (<4.55); TROPONIN I < 0.012 ng/mL
[2018-11-13 11:06] LABS: APPEARANCE,URINE CLEAR; BILIRUBIN,URINE NEGATIVE (NEGATIVE); COLOR,URINE YELLOW; GLUCOSE, URINE NEGATIVE (NEGATIVE); KETONES,URINE NEGATIVE (NEGATIVE); LEUKOCYTE ESTERASE,URINE NEGATIVE (NEGATIVE); NITRITE,URINE NEGATIVE (NEGATIVE); PROTEIN,URINE NEGATIVE (NEGATIVE)
[2018-11-13 15:25] VITALS: BP 151/96
--- NOTE | 2018-11-13 22:13 | EKG REPORT ---
SEVERITY:- BORDERLINE ECG - SINUS RHYTHM BORDERLINE T ABNORMALITIES, INFERIOR LEADS : Confirmed by: Mike Lorenzo MD 13-Nov-2018 22:12:53
== END 2018-11-13 15:25 | disposition home or self-care (01) ==
LOC: ER 09:12
DX: R07.9 Chest pain, unspecified (principal); M54.2 Cervicalgia; G89.29 Other chronic pain; I10 Essential (primary) hypertension; E11.9 Type 2 diabetes mellitus without complications; Z87.891 Personal history of nicotine dependence
CPT/HCPCS: 36415; 71045; 80053; 81001; 82550; 82553; 83735; 84100; 84443; 84484; 85025; 93005; 93010; 99285

== ENCOUNTER 2018-12-05 09:05 | Emergency (ER) | payer MEDICAID ==
[2018-12-05 09:11] VITALS: BP 165/101
[2018-12-05] MEDS ORDERED: ACETAMINOPHEN 325 MG TABLET PO ONE (09:22)
[2018-12-05] MEDS ORDERED: AMLODIPINE BESYLATE 5 MG TABLET PO ONE (09:22)
--- NOTE | 2018-12-05 09:23 | ER Document Report ---
ED Medical Screen (RME) - General Chief Complaint: Blood Pressure Problem Stated Complaint: BLOOD PRESSURE ISSUE Time Seen by Provider: 12/05/18 09:21 Primary Care Provider: LEENA YOUNG MD [Primary Care Provider] - Follow up as needed Mode of Arrival: Ambulatory Information source: Patient Notes: Patient presents complaining of mild headache and being out of his blood pressure medication. Patient denies any chest pain shortness of breath nausea or vomiting. Patient states that he did have an anxiety attack earlier today but denies any anxiety symptoms at this time. Patient states he ran out of his blood pressure medication 3 days ago. hx: Hypertension, diabetes I have greeted and performed a rapid initial assessment of this patient. A comprehensive ED assessment and evaluation of the patient, analysis of test results and completion of the medical decision making process will be conducted by additional ED providers. TRAVEL OUTSIDE OF THE [place] IN LAST 30 DAYS: No - Related Data Allergies/Adverse Reactions: lisinopril Allergy (Verified 12/05/18 09:21) Past Medical History - Social History Chew tobacco use (# tins/day): No Frequency of alcohol use: None Drug Abuse: None - Past Medical History Cardiac Medical History: Reports: Hx Hypertension Endocrine Medical History: Reports: Hx Diabetes Mellitus Type 2 Renal/ Medical History: Denies: Hx Peritoneal Dialysis - Immunizations Immunizations up to date: Yes Physical Exam - Vital signs Vitals: Temp Pulse Resp BP Pulse Ox 97.8 F 74 16 165/101 H 98 12/05/18 09:11 12/05/18 09:11 12/05/18 09:11 12/05/18 09:11 12/05/18 09:11 - General General appearance: Appears well, Alert In distress: None - Neurological Neuro grossly intact: Yes Cognition: Normal [place] Coma Scale Eye Opening: Spontaneous [place] Coma Scale Verbal: Oriented [place] Coma Scale Motor: Obeys Commands [place] Coma Scale Total: 15 Course - Vital Signs Vital signs: Temp Pulse Resp BP Pulse Ox 97.8 F 74 16 165/101 H 98 12/05/18 09:11 12/05/18 09:11 12/05/18 09:11 12/05/18 09:11 12/05/18 09:11 Doctor's Discharge - Discharge Referrals: LEENA YOUNG MD [Primary Care Provider] - Follow up as needed
--- NOTE | 2018-12-05 10:01 | ER Document Report ---
ED General - General Chief Complaint: Blood Pressure Problem Stated Complaint: BLOOD PRESSURE ISSUE Time Seen by Provider: 12/05/18 09:21 Primary Care Provider: LEENA YOUNG MD [Primary Care Provider] - Follow up as needed Mode of Arrival: Ambulatory Notes: 33-year-old male presents emergency department stating that he has been out of his amlodipine 5 mg tablets since Thursday. States that since then he has had a left-sided headache towards the back of his neck that radiates to the left side of his head and his bilateral temples. States that he has been previously diagnosed with cluster headaches by his primary care physician, states this feels similar but also states that this is the same headache he always gets when his blood pressure is elevated. States that he has been following a low-sodium diet until the past 2 days where he ordered a 50 pack of wings from [employer]. States he tried to rinse them off in the sink but they were still quite salty. Thinks this is part of what may have elevated his blood pressure in addition to running out of his blood pressure medications. Denies any blurry vision, numbness, tingling, weakness, does admit chronic lightheadedness that has been there for the past 3 weeks but no new symptoms that have started since running out of the blood pressure medications or since this headache restarted. Does state that the lightheadedness started 3 weeks ago when he started his metformin. TRAVEL OUTSIDE OF THE [place] IN LAST 30 DAYS: No - Related Data Allergies/Adverse Reactions: lisinopril Allergy (Verified 12/05/18 09:21) Past Medical History - General Information source: Patient - Social History Smoking Status: Never Smoker Chew tobacco use (# tins/day): No Frequency of alcohol use: None Drug Abuse: Marijuana Family History: Reviewed & Not Pertinent Patient has suicidal ideation: No Patient has homicidal ideation: No - Past Medical History Cardiac Medical History: Reports: Hx Hypertension Endocrine Medical History: Reports: Hx Diabetes Mellitus Type 2 Renal/ Medical History: Denies: Hx Peritoneal Dialysis - Immunizations Immunizations up to date: Yes Review of Systems - Review of Systems Constitutional: No symptoms reported EENT: No symptoms reported Cardiovascular: No symptoms reported Neurological/Psychological: See HPI -: Yes All other systems reviewed and negative Physical Exam - Vital signs Vitals: Temp Pulse Resp BP Pulse Ox 97.8 F 74 16 165/101 H 98 10/13/19 09:11 12/05/18 09:11 12/05/18 09:11 12/05/18 09:11 12/05/18 09:11 Interpretation: Hypertensive - Notes Notes: GENERAL: Alert, interacts well. No acute distress. 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 ENT: Oral mucosa moist, tongue midline. NECK: Full range of motion, supple, trachea midline. LUNGS: Clear to auscultation bilaterally, no wheezes, rales or rhonchi, no respiratory distress. HEART: Regular rate and rhythm, no murmurs, gallops, rubs. ABDOMEN: Soft, nontender, nondistended, bowel sounds present in all 4 quadrants. EXTREMITIES: Moves all 4 extremities spontaneously, no edema, radial and dorsalis pedis pulses 2/4 bilaterally. No cyanosis. NEUROLOGICAL: Alert and oriented x3, normal speech, cranial nerves II through XII grossly intact, biceps and patellar DTRs 2+ bilaterally. Heel walk, toe walk, turning in circles without difficulty. No ataxia. PSYCH: Normal mood, normal affect. SKIN: Warm, Dry, normal turgor, no rashes or lesions noted. Course - Re-evaluation Re-evalutation: 12/05/18 09:59 Patient has had a similar headache in the past and his blood pressure is elevated, this is more likely related to sodium intake than hypertensive urgency, no focal neurologic deficits. Patient will be treated with usual amlodipine and discharged home. Encouraged to follow-up with primary care physician as an outpatient. Use [id number] medications as recommended on the bottle to further treat headache. Return for fever, neck pain or any new or concerning symptoms. He has no meningeal signs at this time. - Vital Signs Vital signs: Temp Pulse Resp BP Pulse Ox 97.8 F 74 16 165/101 H 98 12/05/18 09:11 12/05/18 09:11 12/05/18 09:11 12/05/18 09:11 12/05/18 09:11 Discharge - Discharge Clinical Impression: Noncompliance w/medication treatment due to intermit use of medication Hypertension Qualifiers: Hypertension type: unspecified Qualified Code(s): I10 - Essential (primary) hypertension Headache Qualifiers: Headache type: unspecified Headache chronicity pattern: acute headache Intractability: not intractable Qualified Code(s): R51 - Headache Condition: Stable Disposition: HOME, SELF-CARE Additional Instructions: Headache The physician does not feel that the headache you are experiencing has a serious underlying cause. Most headaches are due to emotional stress, with resultant muscle tension (tension headache). Occasionally, headaches are secondary to changes in the blood vessels of the scalp (vascular headache and migraine headache). Sometimes, a headache is the first symptom of another developing illness, such as a viral infection. You have no evidence of stroke, bleeding, meningitis, or other serious cause of your headache. The treatment of headaches varies with the severity and cause of the pain. Not all headaches need pain shots. In fact, there is evidence that using narcotics for headaches may make them worse in the long run. The physician will determine the therapy that's in your best interest. If you develop a fever, if the headache is different from any you've previously experienced, or if the headache progressively worsens, then call your physician at once or go to the emergency room. Prescriptions: Amlodipine Besylate [Norvasc 5 mg Tablet] 5 mg PO DAILY #30 tablet Referrals: LEENA YOUNG MD [Primary Care Provider] - Follow up as needed
== END 2018-12-05 10:14 | disposition home or self-care (01) ==
LOC: ER 09:05
DX: I10 Essential (primary) hypertension (principal); T46.1X6A Underdosing of calcium-channel blockers, initial encounter; Z91.128 Patient's intentional underdosing of medication regimen for other reason; Z91.14 Patient's other noncompliance with medication regimen; R51 Headache; R42 Dizziness and giddiness; F12.10 Cannabis abuse, uncomplicated; E11.9 Type 2 diabetes mellitus without complications; Z79.84 Long term (current) use of oral hypoglycemic drugs; Z88.8 Allergy status to other drugs, medicaments and biological substances
CPT/HCPCS: 99283; J3490 ×2